=== PATIENT | female | born 1960 | race Caucasian/White ===

== ENCOUNTER → 2017-06-30 | Outpatient (CLI) | payer OTHER ==
[~2017-06-30] MED LIST: ATOR10 PO; BENA10TA PO; CALCCHW6 PO; CARA1SUS3 PO; MULT-65 PO
[2017-06-30 15:30] LABS: ANION GAP 8 MEQ/L (5-15); AST (GOT) 24 U/L (15-37); BICARBONATE 27.5 MEQ/L (21.0-32.0); BLOOD UREA NITROGEN 10 MG/DL (7-18); CHLORIDE 107 MEQ/L (98-107); GLOMERULAR FILTRATION RATE 73 ML/MIN (>89); GLUCOSE,FASTING 94 MG/DL (74-99); POTASSIUM 4.8 MEQ/L (3.5-5.1); SODIUM (NA) 142 MEQ/L (136-145)
[2017-06-30 15:33] LABS: ALKALINE PHOSPHATASE 122 U/L (45-117); ALT (GPT) 38 U/L (10-53); TOTAL BILIRUBIN ADULT 0.6 MG/DL (0.2-1.0)
== END ==
LOC: PLAB 08:56
PROVIDERS: ATTEND Internal Medicine Interventional Cardiology
DX: I10 Essential (primary) hypertension (principal); I34.0 Nonrheumatic mitral (valve) insufficiency; I37.0 Nonrheumatic pulmonary valve stenosis; E66.09 Other obesity due to excess calories; E78.5 Hyperlipidemia, unspecified
CPT/HCPCS: 36415; 80053

== ENCOUNTER → 2017-08-27 | Outpatient (CLI) | payer OTHER | LOC: PLAB 08:19 | PROVIDERS: ATTEND Family Medicine | DX: R74.8 Abnormal levels of other serum enzymes (principal) | CPT/HCPCS: 36415; 84075 ==

== ENCOUNTER → 2017-10-15 | Outpatient (CLI) | payer OTHER | LOC: CLAB 08:00 | PROVIDERS: ATTEND Family Medicine | DX: R74.8 Abnormal levels of other serum enzymes (principal) | CPT/HCPCS: 36415; 84075 ==

== ENCOUNTER → 2018-02-02 | Outpatient (CLI) | payer OTHER ==
[2018-02-02 08:13] LABS: CALCIUM 9.4 MG/DL (8.5-10.1); CREATININE 0.88 MG/DL (0.50-1.00)
== END ==
LOC: CLAB 07:29
PROVIDERS: ATTEND Internal Medicine Interventional Cardiology
DX: I34.0 Nonrheumatic mitral (valve) insufficiency (principal); E66.09 Other obesity due to excess calories
CPT/HCPCS: 36415; 80048